=== PATIENT | female | born 1975 ===

== ENCOUNTER 2019-03-11 13:32 | Outpatient (CLI) | payer BC ==
--- NOTE | 2019-03-11 14:22 | ULT ---
Exam: Bilateral renal ultrasound HISTORY: Nephrolithiasis COMPARISON: None FINDINGS: Right kidney: Normal cortical echotexture. No hydronephrosis. Right kidney measurements: 9.8 x 4.2 x 3.7 cm. Left kidney: Normal cortical echotexture. No hydronephrosis Left kidney measurements 7.1 x 5.0 x 5.0 cm. Urinary bladder: Normal mucosa. Bilateral ureteral jets are identified. IMPRESSION: No hydronephrosis.
== END 2019-03-11 13:33 | disposition home or self-care (01) ==
LOC: BICULT 13:32
PROVIDERS: ATTEND Urology
DX: N20.0 Calculus of kidney (principal)
CPT/HCPCS: 76770